=== PATIENT | female | born 1985 | race Caucasian/White ===

== ENCOUNTER 2023-05-03 01:05 | Emergency (ER) | payer MEDICAID ==
[~2023-05-03] VITALS: Ht 162.6 cm; Wt 82.3 kg
[2023-05-03 01:10] VITALS: BP 127/85; PULSE 66; RESP 18; TEMP 98.3; O2SAT 99
== END 2023-05-03 02:15 | disposition left against medical advice (07) ==
LOC: ER 01:06
DX: S61.251A Open bite of left index finger without damage to nail, initial encounter (principal); Z53.21 Procedure and treatment not carried out due to patient leaving prior to being seen by health care provider; W55.01XA Bitten by cat, initial encounter; Y93.89 Activity, other specified; Y92.89 Other specified places as the place of occurrence of the external cause; Y99.8 Other external cause status
CPT/HCPCS: 99281

== ENCOUNTER 2024-12-01 13:06 | Emergency (ER) | payer MEDICAID ==
[~2024-12-01] VITALS: Ht 162.6 cm; Wt 82.9 kg
[2024-12-01 14:22] LABS: ABG BASE EXCESS -4.7 mmol/L (-2.0-3.0); ABG HCO3 18.1 mmol/L (21.0-28.0); ABG PCO2 (T) 27.3 mmHg (32.0-45.0); ABG PH (T) 7.435 (7.350-7.450); ABG PO2 (T) 86.7 mmHg (83.0-108.0); ALLEN'S TEST POSITIVE; FCOHb 0.3 % (0.5-1.5); FO2Hb 96.7 % (94.0-98.0); MODE ROOM AIR; PATIENT TEMPERATURE 36.3; TOTAL HEMOGLOBIN 15.5 G/dl (12.0-16.0)
[2024-12-01 14:30] LABS: BASOPHILS # (AUTO) 0.1 X10'3 (0-0.2); BASOPHILS % (AUTO) 0.6 % (0-1); EOSINOPHILS # (AUTO) 0.2 X10'3 (0-0.9); EOSINOPHILS % (AUTO) 1.6 % (0-6); HEMATOCRIT 46.2 % (35.0-45.0); HEMOGLOBIN 15.5 g/dl (12.0-16.0); LYMPHOCYTES # (AUTO) 2.4 X10'3 (1.1-4.8); LYMPHOCYTES % (AUTO) 24.3 % (21-51); MEAN CORPUSCULAR HEMOGLOBIN 30.2 PG (27.0-31.0); MEAN CORPUSCULAR HGB CONC 33.5 g/dL (33.0-36.5); MEAN CORPUSCULAR VOLUME 90.1 FL (78-98); MONOCYTES # (AUTO) 0.6 X10'3 (0-0.9); MONOCYTES % (AUTO) 5.8 % (2-12); NEUTROPHILS # (AUTO) 6.8 X10'3 (1.8-7.7); NEUTROPHILS % (AUTO) 67.7 % (42-75); PLATELET COUNT 342 X10'3 (140-440); RED BLOOD COUNT 5.13 X10'6 (4.20-5.60); RED CELL DISTRIBUTION WIDTH 13.5 % (11.5-14.5)
[2024-12-01 15:02] LABS: ANION GAP 11 (8-16); BLOOD UREA NITROGEN 8 MG/DL (7-18); CALCIUM 8.6 MG/DL (8.5-10.1); CHLORIDE 105 MMOL/L (99-107); CREATININE 0.73 MG/DL (0.40-0.90); GLUCOSE 97 MG/DL (70-104); SALICYLATE 0.7 MG/DL (4.0-20.0); SODIUM 140 MMOL/L (135-145); TOTAL CARBON DIOXIDE 23.6 MMOL/L (24-32); eCRCL 88 ML/MIN; eGFR 88 ML/MIN
[2024-12-01 15:07] LABS: BILIRUBIN,URINE NEGATIVE (Neg); CLARITY,URINE CLEAR (Clear); COLOR,URINE YELLOW (Yellow); GLUCOSE, URINE NEGATIVE (Neg); KETONES,URINE 15 mg/dl (Neg); LEUKOCYTE ESTERASE ,URINE SMALL (Neg); NITRITES, URINE NEGATIVE (Neg); OCCULT BLOOD,URINE NEGATIVE (Neg); PROTEIN,URINE NEGATIVE (Neg)
[2024-12-01 15:10] LABS: ACETAMINOPHEN < 2.0 UG/ML (10-30)
[2024-12-01 15:12] LABS: URINE AMPHETAMINE SCREEN NEGATIVE (Neg); URINE BARBITUATE SCREEN NEGATIVE (Neg); URINE BENZODIAZEPINES SCREEN NEGATIVE (Neg); URINE CANNABINOID SCREEN NEGATIVE (Neg); URINE COCAINE SCREEN NEGATIVE (Neg); URINE METHADONE SCREEN NEGATIVE (Neg); URINE OPIATE SCREEN NEGATIVE (Neg); URINE PHENCYCLIDINE SCREEN NEGATIVE (Neg)
[2024-12-01 15:21] LABS: UA COLLECTION TYPE CLN CATCH MIDSTREAM
[2024-12-01 15:22] LABS: BACTERIA,URINE FEW /HPF (Neg); RBC,URINE 0-2 /HPF (0-2); SQUAMOUS EPITHELIAL CELL,UR FEW /LPF (FEW)
[2024-12-01 15:23] LABS: TRANSITIONAL EPI CELLS,URINE FEW /HPF
[2024-12-01] MEDS ORDERED: CLON1TAB2 PO (17:26)
[2024-12-01] MEDS: clonazePAM 0.5mg tablet PO STA (17:38)
[2024-12-01 19:47] VITALS: BP 117/77; PULSE 76; RESP 18; TEMP 98.3; O2SAT 98
[2024-12-01] MEDS ORDERED: clonazePAM 0.5mg tablet PO SCH (20:00)
== END 2024-12-01 19:57 | disposition home or self-care (01) ==
LOC: ER 13:07
DX: F13.20 Sedative, hypnotic or anxiolytic dependence, uncomplicated (principal); F41.9 Anxiety disorder, unspecified; J45.909 Unspecified asthma, uncomplicated; Z98.890 Other specified postprocedural states
CPT/HCPCS: 36415; 36600; 71045; 80048; 80305; 80329; 81001; 82803; 85018; 85025; 93005; 99285

== ENCOUNTER 2024-12-20 11:26 | Emergency (ER) | payer MEDICAID ==
[~2024-12-20] VITALS: Ht 162.6 cm; Wt 89.1 kg
[~2024-12-20 11:26] MED LIST: CLON1TAB2 PO
[2024-12-20 11:29] VITALS: BP 145/70; PULSE 88; RESP 18; TEMP 98; O2SAT 98
[2024-12-20] MEDS ORDERED: DICY20TA17 PO (13:07)
[2024-12-20] MEDS ORDERED: ONDA-243 PO (13:07)
[2024-12-20] MEDS: ondansetron 4mg rapidly disintigrating tab PO ONE (13:19)
[2024-12-20] MEDS: cloNIDine 0.1 mg tablet PO ONE (13:19)
[2024-12-20] MEDS: dicyclomine 10 MG capsule PO ONE (13:19)
== END 2024-12-20 13:26 | disposition home or self-care (01) ==
LOC: ER 11:27
DX: Z00.8 Encounter for other general examination (principal); F13.20 Sedative, hypnotic or anxiolytic dependence, uncomplicated; F41.9 Anxiety disorder, unspecified; J45.909 Unspecified asthma, uncomplicated
CPT/HCPCS: 99284

== ENCOUNTER 2025-04-10 11:00 | Outpatient (CLI) | payer MEDICAID ==
[~2025-04-10 11:00] MED LIST changes: +DICY20TA17 PO; +ONDA-243 PO; +fentaNYL/PF 50MCG/1 ML 2ML syringe ONE; +midazolam 1 mg/ML 2ml injection ONE; +propofol inj 20 ML IV ONE; +succinylcholine 20mg/ml inj IV ONE
--- NOTE | 2025-04-10 13:25 | RADIOLOGY REPORT ---
CLINICAL INDICATION: PAIN IN LEFT FINGER(S) COMPARISON: None TECHNIQUE: Multiplanar, multi-sequence MRI of the left hand was performed without intravenous contrast. Contrast: None INTERPRETATION: Bones: There is no fracture. There is no marrow replacing lesion. Joints: Severe 1st metacarpophalangeal joint space narrowing. Mild volar subluxation of the 1st proxi mal phalanx relative to the 1st metacarpal bone. The other visualized joint spaces are maintained. Soft tissues: The radial and ulnar collateral ligaments of the thumb are not well visualized due to p frank of imaging and poor resolution. The visualized portions of the radial collateral ligament of the thumb appear attenuated. The flexor and extensor tendons are intact. There is no soft tissue mas s or fluid collection. IMPRESSION: 1. Subluxation of the 1st metacarpophalangeal joint. The subluxation is suggestive of an underlying c ollateral ligament injury possibly the radial collateral ligament. Ulnar collateral ligament not wel l visualized due to the field of plane of imaging and poor resolution of the images. 2. 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
== END 2025-04-10 23:59 | disposition home or self-care (01) ==
LOC: MRI02 11:00
PROVIDERS: ATTEND Physician Assistant Surgical
DX: S63.112A Subluxation of metacarpophalangeal joint of left thumb, initial encounter (principal); M79.645 Pain in left finger(s); M19.041 Primary osteoarthritis, right hand; X58.XXXA Exposure to other specified factors, initial encounter; Y93.89 Activity, other specified; Y92.89 Other specified places as the place of occurrence of the external cause; Y99.8 Other external cause status
CPT/HCPCS: 73218; J0330; J2250; J2704; J3010